=== PATIENT | male | born 1975 | race Caucasian/White ===

== ENCOUNTER 2023-08-19 01:02 | Observation (INO) | payer BC, SELFPAY ==
--- NOTE | ~2023-08-19 | XR_ITS ---
EXAMINATION: XR ankle LT min 3V DATE: 08/19/2023 01:57 INDICATION: Right ankle pain and cellulitis TECHNIQUE: Anteroposterior, mortise, and lateral views of the left ankle were obtained. COMPARISON: None. FINDINGS: Bone alignment is normal. No fracture. Joint spaces are normal. Small Achilles and plantar calcaneal spurs. No cortical erosions or periosteal reaction. There is diffuse soft tissue swelling about the l eft ankle which does not appear to extend more distally into the foot. Possible ankle joint effusion. IMPRESSION: 1. Diffuse soft tissue swelling about the left ankle with possible left ankle joint effusion. No acut e osseous abnormality. Reviewed, dictated and finalized at location A. IMPRESSION: 1. Diffuse soft tissue swelling about the left ankle with possible left ankle j oint effusion. No acute osseous abnormality.
[2023-08-19 01:06] VITALS: BP 148/85; PULSE 81; RESP 17; TEMP 36.4; O2SAT 100
[2023-08-19 01:54] LABS: Basophils Percent Auto 0.4 % (0.2-1.2); Eosinophils Percent Auto 0.1 % (0-4.4); Hematocrit 37.7 % (42.0-52.0); Hemoglobin 12.4 g/dL (14.0-18.0); Immature Granulocyte Absolute 0.02 K/mm3 (0.00-0.031); Immature Granulocyte Percent A 0.2 % (0-0.5); Lymphocytes Absolute Auto 0.75 K/mm3 (0.9-3.2); Lymphocytes Percent Auto 9.1 % (18.3-44.2); Mean Corpuscular HGB Conc 32.9 g/dl (32-36); Mean Corpuscular Hemoglobin 31.9 pg (26-34); Mean Corpuscular Volume 96.9 fl (80-100); Mean Platelet Volume 10.2 fl (7.4-10.4); Monocytes Absolute Auto 0.5 K/mm3 (0.1-0.6); Monocytes Percent Auto 6.2 % (2.6-8.5); Neutrophils Absolute Auto 6.9 K/mm3 (1.3-6.7); Platelet Count Result 322 k/mm3 (150-375); Red Blood Count 3.89 M/mm3 (4.6-6.20); White Blood Count 8.2 K/mm3 (4.5-10.0)
[2023-08-19 02:07] LABS: Lactic Acid Reflex 1.3 mmol/L (0.7-2.0)
[2023-08-19 02:09] LABS: Alanine Aminotransferase 30 U/L (6-50); Albumin Level 4.6 g/dL (3.5-5.1); Alkaline Phosphatase 98 U/L (38-126); Anion Gap 8 mmol/L (4-12); Aspartate Amino Transferase 27 U/L (17-59); Bilirubin,Total 0.4 mg/dL (0.2-1.3); Blood Urea Nitrogen 16 mg/dL (9-20); CRP 1.1 mg/dL (<1.0); Calcium 8.4 mg/dL (8.4-10.2); Carbon Dioxide 35 mmol/L (22-30); Chloride 98 mmol/L (98-107); Estimated CRCL calculation 120 ml/min; Estimated Glomerular Filt Rate > 60; Glucose 141 mg/dL (65-110); Potassium 3.8 mmol/L (3.4-5.0); Sodium 141 mmol/L (137-145)
--- NOTE | 2023-08-19 02:09 | ED.GENADULT ---
HPI - General Adult General Chief complaint: Extremity Problem,Nontraumatic Stated complaint: Left leg/ankle swelling Time Seen by Provider: 08/19/23 01:28 History of Present Illness HPI narrative: Patient 48-year-old gentleman presents emergency department with chief complaint of redness to the left foot area. The patient reports he was seen at another hospital told that he had infection in the skin was given a shot of antibiotics and then later on was started on Zithromax the patient reports that he has continued to have worsening redness and pain in the ankle and foot area the patient reports that he has no prior history of diabetes denies fever reports that he is concerned that infection is progressing. Related Data Allergies Allergy/AdvReac Type Severity Reaction Status Date / Time No Known Allergies Allergy Verified 08/19/23 01:09 Review of Systems Review of Systems: A 10 system review of systems was completed on the patient and is negative except for what is stated in the HPI. Nursing and ancillary documentation was reviewed. Exam Narrative: GENERAL: Well-appearing, well-nourished, and in no acute distress. HEAD: Normocephalic, atraumatic. EYES: PERRLA and EOMI. ENT: Nares clear, no rhinorrhea or epistaxis. Mucous membranes moist. NECK: Supple. CHEST: Clear to auscultation. No respiratory distress. HEART: Regular rate and rhythm. No murmur heard. Normal peripheral pulses. ABDOMEN: Soft, nontender, nondistended, normal active bowel sounds. EXTREMITIES: Normal range of motion. Slight swelling of the left ankle . SKIN: Warm, dry, no rash. Except for left ankle there is redness around the heel NEURO: No focal deficits. Alert and oriented x3. PSYCH: Normal mood and affect. Course Vital Signs Vital signs: Vital Signs Temperature 36.4 C 08/19/23 01:06 Pulse Rate 81 08/19/23 01:06 Respiratory Rate 17 08/19/23 01:06 Blood Pressure 148/85 H 08/19/23 01:06 Pulse Oximetry 100 08/19/23 01:06 Oxygen Delivery Room Air 08/19/23 01:06 Temperature 36.4 C 08/19/23 01:06 Pulse Rate 81 08/19/23 01:06 Respiratory Rate 17 08/19/23 01:06 Blood Pressure 148/85 H 08/19/23 01:06 Pulse Oximetry 100 08/19/23 01:06 Oxygen Delivery Room Air 08/19/23 01:06 Medical Decision Making MDM Narrative Medical decision making narrative: Differential diagnosis includes cellulitis, monoarticular arthritis, abscess, Laboratory studies were obtained on the patient showed a CBC with white count 8.2 lactic acid was normal CRP pro count and sed rate were normal. X-ray showed no evidence of foreign body no evidence of soft tissue gas or evidence of bony destruction The patient started on Ancef and vanc due to the failed outpatient therapy the patient will be admitted for observation for IV antibiotics blood cultures were obtained Vital Signs Vital Signs: Vital Signs Temperature 36.4 C 08/19/23 01:06 Pulse Rate 81 08/19/23 01:06 Respiratory Rate 17 08/19/23 01:06 Blood Pressure 148/85 H 08/19/23 01:06 Pulse Oximetry 100 08/19/23 01:06 Oxygen Delivery Room Air 08/19/23 01:06 Temperature 36.4 C 08/19/23 01:06 Pulse Rate 81 08/19/23 01:06 Respiratory Rate 17 08/19/23 01:06 Blood Pressure 148/85 H 08/19/23 01:06 Pulse Oximetry 100 08/19/23 01:06 Oxygen Delivery Room Air 08/19/23 01:06 Lab Data 08/19/23 01:45 08/19/23 01:44 Labs: Lab Results 08/19/23 08/19/23 Range/Units 01:44 01:45 WBC 8.2 (4.5-10.0) K/mm3 RBC 3.89 L (4.6-6.20) M/mm3 Hgb 12.4 L (14.0-18.0) g/dL Hct 37.7 L (42.0-52.0) % MCV 96.9 (80-100) fl MCH 31.9 (26-34) pg MCHC 32.9 (32-36) g/dl RDW 12.0 (11.5-14.5) % Plt Count 322 (150-375) k/mm3 MPV 10.2 (7.4-10.4) fl Immature Gran % (Auto) 0.2 (0-0.5) % Neut % (Auto) 84.0 H (45.5-73.1) % Lymph % (Auto) 9.1 L (18.3-44.2) % [place] % (Auto) 6.
[2023-08-19 02:19] LABS: Erythrocyte Sedimentation Rate 20 mm/hr (0-20)
[2023-08-19] MEDS: ceFAZolin 1 GM/NS 50 ML 1 GM/50 ML BAG IVPB ×3 (02:29→17:09)
[2023-08-19 02:37] VITALS: BP 139/92; PULSE 70; RESP 12; O2SAT 95
--- NOTE | 2023-08-19 02:56 | PM.IMHP ---
H&P: HPI History of Present Illness Date/Time: 08/19/23 02:56 Chief Complaint: cellulitis Narrative: This is a 48-year-old male with no significant past medical history presents to the emergency room with 10 days history of left lower extremity ankle area cellulitis redness warmth tenderness patient had been seen in the Urgent Care was given Solu pack and erythromycin however patient noticed no improvement decided to come to the emergency room. Patient denies fevers rigors chills nausea vomiting abdominal pain diarrhea muscles aches and pains, generalized malaise. ankle x-ray showed no fracture or foreign body Review of Systems Review of Systems: tenderness, redness of the leg. Meds Home Medications and Allergies Allergies Allergy/AdvReac Type Severity Reaction Status Date / Time No Known Allergies Allergy Verified 08/19/23 01:09 Vital Signs Vital Signs - 24 hr 08/19/23 01:06 08/19/23 02:37 Temperature 97.6 F Pulse Rate 81 70 Respiratory Rate 17 12 Blood Pressure 148/85 H 139/92 H Pulse Oximetry 100 95 Oxygen Delivery Room Air Exam Narrative: patient is laying in bed Const: General: comfortable, no acute distress, well developed, alert, awake and average body habitus Nutritional Appearance: average body habitus Orientation/consciousness: patient oriented x3 Other: well-appearing HENMT: Head: normal to inspection, normocephalic and atraumatic Ears: hearing grossly normal bilaterally Face/Nose/Sinus: normal facial exam Face and sinus: normal facial exam Eyes: General: appearance normal, both eyes and all related structures Pupils: Equal, round and reactive pupils present EOM: EOMs intact bilaterally Neck: Neck: full ROM, no lymphadenopathy and no JVD Thyroid: thyroid normal Lymphatic: no lymphadenopathy noted Resp: Effort & Inspection: normal respiratory effort and able to speak in complete sentences Auscultation: clear to auscultation bilaterally Cardio: Jugular venous distension: no JVD Rate: regular rate Rhythm: regular rhythm Heart sounds: S1 normal heart sound present and S2 normal heart sound present GI: GI Palp: Yes Soft to palpation and Yes No hepatosplenomegaly present : General: Yes deferred Skin: Rashes: no rashes Wounds: no wounds Neuro: General: patient oriented x3 and CN's II-XI intact bilaterally Cranial nerves: Yes CN's II-XII intact bilaterally and Yes Equal, round and reactive pupils present Cognition (Neuro): normal cognition Speech: normal speech Gait exam (Neuro): Normal gait present Motor exam (neuro): 5/5 motor strength present throughout Extrem: General: normal to inspection, full ROM, no joint enlargement and no pedal edema Left lower extremity: ankle Details: tenderness, swelling and warmth H&P: Results Labs Labs: Short CBC 08/19/23 Range/Units 01:45 WBC 8.2 (4.5-10.0) K/mm3 Hgb 12.4 L (14.0-18.0) g/dL Hct 37.7 L (42.0-52.0) % Plt Count 322 (150-375) k/mm3 BMP 08/19/23 01:44 Sodium 141 Potassium 3.8 Chloride 98 Carbon Dioxide 35 H BUN 16 Creatinine 0.70 Glucose 141 H Calcium 8.4 Liver Function 08/19/23 Range/Units 01:44 Total Bilirubin 0.4 (0.2-1.3) mg/dL AST 27 (17-59) U/L ALT 30 (6-50) U/L Alkaline Phosphatase 98 (38-126) U/L Albumin 4.6 (3.5-5.1) g/dL Assessment and Plan Assessment and plan (1) Cellulitis: Code(s): L03.90 - Cellulitis, unspecified Status: Acute Assessment and Plan: place in medical regular floor started on cefepime and vancomycin cultures in progress supportive care
[2023-08-19] MEDS: VANCOMYCIN 1,500 MG/NS 500 ML 1,500 MG/500 ML BAG 250 MG IVPB (03:10)
--- NOTE | 2023-08-19 03:21 | ADMGEN ---
This patient, David Crawford, was admitted to Medical Room 249-01. Patient/family oriented to hospital policies and general routines including ID bracelet, bed and alarms, visiting hours, pain management, procedures, bathroom and other care routines, personal items, smoking policy, room service/diet, and visiting hours. Information on how to activate the Rapid Response Team has been discussed. Patient/Family are encouraged to report perceived risks to care and to ask questions if they do not understand what they are told or what they should do.
[2023-08-19 03:29] VITALS: BMI 24.0
[2023-08-19 03:32] VITALS: BP 142/80; PULSE 66; RESP 16; TEMP 36.6; O2SAT 100
[2023-08-19 14:00] VITALS: BP 127/82; PULSE 62; RESP 14; TEMP 36.8; O2SAT 97
[2023-08-19] MEDS: VANCOMYCIN 1,500 MG/NS 500 ML 1,500 MG/500 ML BAG 150 MG IVPB (14:53)
[2023-08-19] MEDS: traMADol HCL (*CRX) 50 MG TABLET PO ×2 (14:58→20:47)
--- NOTE | 2023-08-19 16:07 | PM.IMPN ---
Progress Note: A&P Assessment and Plan (1) Cellulitis: Code(s): L03.90 - Cellulitis, unspecified Status: Acute Assessment and Plan: -acute, patient reports a history of long extended periods of outside work, he admits to several tick bites in the last 2 weeks -pt reports hx of chronic scratches to his legs from his cats He denies any fever chills nausea vomiting -check Lyme titer -continue vancomycin IVBP q 24hrs -continue ancef 1 gm q 8hrs blood cultures pending - Plan Continue home medications: denies daily medications VTE Prophylaxis: SCDs DIET: Regular Anticipated hospital stay: > 2 days Code Status: Full code Time Spent With Patient Time with patient: 15 - 25 minutes Subjective Date/time seen: 08/19/23 16:07 Interval history: 48 year-old male patient with limited PMHx: Denies any daily medication use presented to the emergency room with complaint of ongoing left ankle swelling. 08/19/2023: Patient seen this morning, he is resting in bed denies any overnight complaints, he reports initial swelling to ankle has decreased. Review of Systems Review of Systems: All systems reviewed & are unremarkable except as noted in HPI and below Exam Narrative: General: A well-developed, nontoxic-appearing gentlemen, sitting up in bed. HEENT: PERRL, EOMI. Oral mucosa moist. Neck: Supple. No midline cervical tenderness. Respiratory: Respirations are non- labored and lungs are clear to auscultation bilaterally. Cardiovascular: Regular rate and rhythm with S1-S2. Gastrointestinal: Abdomen is soft, non-tender, and non-distended with positive bowel sounds. Skin: Warm and dry. Left ankle swelling and redness, not tender to touch Extremities: No cyanosis, clubbing, or edema. Radial and pedal pulses intact. Neurological: Alert and oriented. Cranial nerves 2-12 are grossly intact. No gross focal deficits to casual conversation. Psychiatric: Pleasant and cooperative with normal mood and affect. Judgment and insight intact. Objective Data Vital Signs Vital Signs: Vital Signs - 24 hr 08/19/23 01:06 08/19/23 02:37 08/19/23 03:32 Temperature 97.6 F 97.8 F Pulse Rate 81 70 66 Respiratory Rate 17 12 16 Blood Pressure 148/85 H 139/92 H 142/80 H Pulse Oximetry 100 95 100 Oxygen Delivery Room Air 08/19/23 08:00 08/19/23 14:00 Temperature 98.3 F Pulse Rate 62 Respiratory Rate 14 Blood Pressure 127/82 Pulse Oximetry 97 Oxygen Delivery Room Air Intake/Output Intake/Output: Intake & Output 08/16/23 08/17/23 08/18/23 08/19/23 23:59 23:59 23:59 23:59 Intake Total 790 Balance 790 Meds/Results Medications: Active Medications Generic Name Dose Route Start Last Admin Trade Name Freq PRN Reason Stop Dose Admin Acetaminophen 1,000 mg 08/19/23 03:40 Acetaminophen 500 Mg Tablet PO Q6H PRN Mild Pain (1-3) or Fever Al Hydrox/Mg Hydrox/Simethicone 30 ml 08/19/23 03:40 Mag Hydrox/Al Hydrox/Simeth 30 Ml Udc PO Q6H PRN Indigestion Cefazolin Sodium 1 gm in 50 mls @ 100 mls/hr 08/19/23 10:00 08/19/23 09:00 Ancef 1 Gm/Ns 50 Ml IVPB 100 mls/hr Q8H [place] Administration Vancomycin HCl 1,500 mg in 500 mls @ 250 mls/hr 08/19/23 03:00 08/19/23 14:53 Vancomycin 1,500 Mg/Ns 500 Ml IVPB 150 mls/hr Q12H [place] Administration Ondansetron HCl 4 mg 08/19/23 03:40 Ondansetron Inj 4 Mg/2 Ml Vial IV PUSH Q6H PRN Nausea And Vomiting Polyethylene Glycol 17 gm 08/19/23 03:40 Polyethylene Glycol 3350 17 Gm Powd.Pack PO QAM PRN Constipation Tramadol HCl 50 mg 08/19/23 03:40 08/19/23 14:58 Tramadol Hcl (*Crx) 50 Mg Tablet PO 50 mg Q6H PRN Administration Pain Rated 4-6 Radiology Results: ITS Impressions Ankle X-Ray 08/19/23 07:42 IMPRESSION: 1. Diffuse soft tissue swelling about the left ankle with possible left ankle joint effusion. No acute osseous abnormality. Labs L
[2023-08-19 20:00] VITALS: PULSE 60; RESP 18; O2SAT 97
[2023-08-19 20:07] VITALS: BP 133/77; PULSE 50; RESP 17; TEMP 36.6; O2SAT 97
[2023-08-20] MEDS: VANCOMYCIN 1,500 MG/NS 500 ML 1,500 MG/500 ML BAG 150 MG IVPB (03:41)
[2023-08-20] MEDS: ceFAZolin 1 GM/NS 50 ML 1 GM/50 ML BAG IVPB ×2 (03:41→09:23)
[2023-08-20 05:14] VITALS: BP 127/78; PULSE 53; RESP 17; TEMP 37; O2SAT 97
[2023-08-20 06:52] LABS: Estimated CRCL calculation 121 ml/min; Estimated Glomerular Filt Rate > 60
--- NOTE | 2023-08-20 08:34 | PM.IMPN ---
Progress Note: A&P Assessment and Plan (1) Cellulitis: Code(s): L03.90 - Cellulitis, unspecified Status: Acute Assessment and Plan: 08/20/23: Patient presented with a red/warm/swollen left ankle. He was seen and treated at an outside hospital with azithromycin which is now showing failure. Continue Ancef and vancomycin X-ray of the left ankle shown diffuse soft tissue swelling about the left ankle with possible left ankle joint effusion White blood cell count 8.2, lactic acid was 1.3, C reactive protein was 1.1, procalcitonin 0.0. Blood cultures were obtained and are pending. 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 We will check patient for Lyme disease Time Spent With Patient Time with patient: Greater than 35 minutes Subjective Date/time seen: 08/20/23 08:34 Interval history: This is a 48-year-old male who presented to the hospital on 08/19/2023 with left leg/ankle swelling. Workup in the hospital included an ankle x-ray which showed diffuse soft tissue swelling about the left ankle with possible left ankle joint effusion. Patient was seen at an outside hospital and was told that he had an infection in the skin and was given shot antibiotics and started on azithromycin however his pain and redness and swelling worsened prompting him to come back to the emergency room for further workup. Initial labs shown a normal white blood cell count of 8.2, hemoglobin 12.4, C reactive protein 1.1, pro count 0.0, lactic acid 1.3. Blood cultures were obtained and are pending. Patient was started on Ancef and vancomycin while in the ED. patient denies. Patient endorses. Review of Systems Review of Systems: All systems reviewed & are unremarkable except as noted in HPI and below Constitutional: Constitutional: Reports as per HPI and Reports no additional constitutional complaints Eyes: Eyes: Reports as per HPI and Reports no additional eye complaints ENT: Reports system reviewed and no additional complaints, except as documented and Reports as per HPI Cardiovascular: Cardiovascular: Reports as per HPI and Reports no additional cardiovascular complaints Respiratory: Respiratory: Reports as per HPI and Reports no additional respiratory complaints Gastrointestinal: Gastrointestinal: Reports as per HPI and Reports no additional gastrointestinal complaints Genitourinary: Genitourinary: Reports no additional male genitourinary complaints and Reports as per HPI Musculoskeletal: Musculoskeletal: Reports no additional musculoskeletal complaints and Reports as per HPI Integumentary/Breasts: Skin/Breast: Reports system reviewed and no additional complaints, except as docu and Reports as per HPI Neurologic: Reports system reviewed and no additional complaints, except as documented and Reports as per HPI Psychiatric: Psychiatric: Reports no additional psychiatric complaints and Reports as per HPI Exam Narrative: General: In no acute distress, well nourished Head: atraumatic, no encephalopathy Eyes: EOMI, PERRLA, sclera clear ENT: moist mucous membranes, nasal passages clear Neck: supple, no JVD, no adenopathy, trachea midline Cardiac: Normal S1 and S2. No murmur, gallops or friction rubs, peripheral pulses intact. Respiratory: Lungs clear to auscultation, no adventitious lung sounds Gastrointestinal: soft, non-distended, non-tender, normoactive bowel sounds. : voiding without difficulty. Extremities: moves all extremities well, no edema, good ROM, strength 5/5 Skin: clean, dry, intact. No wounds or lesions. Neuro: Alert and oriented x4, cranial nerves intact, no neuro deficits. Psych: normal mood, normal affect, interactive Objective Data Vital Signs Vital Signs: Vital Signs - 24 hr 08/19/23 14:00 08/19/23 20:07 08/19/23 20:00 Temperature 98.3 F 97.9 F Pulse Rate 62 50 L 60 Respiratory Rate 14 17 18 Blood Pressure 127/82 133/77 Pulse Oximetry
[2023-08-20 08:53] LABS: Basophils Absolute Auto 0.1 K/mm3 (0.0-0.1); Basophils Percent Auto 0.6 % (0.2-1.2); Eosinophils Absolute Auto 0.2 K/mm3 (0-0.3); Eosinophils Percent Auto 2.3 % (0-4.4); Hematocrit 43.2 % (42.0-52.0); Hemoglobin 13.7 g/dL (14.0-18.0); Immature Granulocyte Absolute 0.02 K/mm3 (0.00-0.031); Immature Granulocyte Percent A 0.2 % (0-0.5); Lymphocytes Absolute Auto 1.68 K/mm3 (0.9-3.2); Lymphocytes Percent Auto 19.4 % (18.3-44.2); Mean Corpuscular HGB Conc 31.7 g/dl (32-36); Mean Corpuscular Hemoglobin 30.9 pg (26-34); Mean Corpuscular Volume 97.3 fl (80-100); Mean Platelet Volume 10.6 fl (7.4-10.4); Monocytes Absolute Auto 0.7 K/mm3 (0.1-0.6); Monocytes Percent Auto 7.9 % (2.6-8.5); Neutrophils Percent Auto 69.6 % (45.5-73.1); Platelet Count Result 330 k/mm3 (150-375); Red Blood Count 4.44 M/mm3 (4.6-6.20); White Blood Count 8.6 K/mm3 (4.5-10.0)
[2023-08-20] MEDS: ENOXAPARIN 40 MG/0.4 ML SYRINGE SUB-Q (09:23)
[2023-08-20 09:29] LABS: Vancomycin Trough 44.5 ug/mL (10.0-20.0)
[2023-08-20 11:12] LABS: Alanine Aminotransferase 29 U/L (6-50); Albumin Level 3.8 g/dL (3.5-5.1); Alkaline Phosphatase 92 U/L (38-126); Anion Gap 7 mmol/L (4-12); Aspartate Amino Transferase 25 U/L (17-59); Bilirubin,Total 0.4 mg/dL (0.2-1.3); Blood Urea Nitrogen 11 mg/dL (9-20); Calcium 8.6 mg/dL (8.4-10.2); Carbon Dioxide 27 mmol/L (22-30); Chloride 107 mmol/L (98-107); Estimated CRCL calculation 121 ml/min; Estimated Glomerular Filt Rate > 60; Glucose 93 mg/dL (65-110); Potassium 3.8 mmol/L (3.4-5.0); Sodium 141 mmol/L (137-145)
[2023-08-20 11:19] VITALS: O2SAT 96
--- NOTE | 2023-08-20 12:55 | PM.DS ---
DS: Admitting Diagnosis Discharge Date 08/20/23 Admitting Diagnosis Cellulitis DS: Summary Hospital Course Reason for hospitalization: Cellulitis Hospital Course: This is a 48-year-old male who presented to the hospital on 08/19/2023 with left leg/ankle swelling. Workup in the hospital included an ankle x-ray which showed diffuse soft tissue swelling about the left ankle with possible left ankle joint effusion. Patient was seen at an outside hospital and was told that he had an infection in the skin and was given shot antibiotics and started on azithromycin however his pain and redness and swelling worsened prompting him to come back to the emergency room for further workup. Initial labs shown a normal white blood cell count of 8.2, hemoglobin 12.4, C reactive protein 1.1, pro count 0.0, lactic acid 1.3. Blood cultures were obtained and are pending. Patient was started on Ancef and vancomycin while in the ED. Patient denies any fever, chills, nausea, vomiting, diarrhea, abdominal pain chest pain shortness breath. Patient states that he is not having any pain in his lower extremity and the swelling has improved. Plan is to go ahead and discharge home on oral antibiotics. He will need to follow up with PCP in 1 week. Final diagnosis: Cellulitis Status at Discharge Cognitive/behavioral status at discharge: Alert oriented x4 Functional status at discharge: independent ambulation Overall status at discharge: patient is progressing back to baseline Time Spent with Patient Time attestation: Total time spent providing and/or coordinating discharge services: Time spent: Greater than 30 minutes Exam Narrative: General: In no acute distress, well nourished Head: atraumatic, no encephalopathy Eyes: EOMI, PERRLA, sclera clear ENT: moist mucous membranes, nasal passages clear Neck: supple, no JVD, no adenopathy, trachea midline Cardiac: Normal S1 and S2. No murmur, gallops or friction rubs, peripheral pulses intact. Respiratory: Lungs clear to auscultation, no adventitious lung sounds Gastrointestinal: soft, non-distended, non-tender, normoactive bowel sounds. : voiding without difficulty. Extremities: moves all extremities well, mild left ankle swelling, good ROM, strength 5/5 Skin: Skin is pink around Achilles, mild swelling today. Neuro: Alert and oriented x4, cranial nerves intact, no neuro deficits. Psych: normal mood, normal affect, interactive DS: Data Data Completed and Pending Completed studies during hospitalization: Ankle x-ray Pending studies at discharge: Blood cultures Labs on day of discharge: Labs from last 24 hours 08/20/23 08/20/23 08/20/23 05:57 05:57 05:57 WBC RBC Hgb Hct MCV MCH MCHC RDW Plt Count MPV Immature Gran % (Auto) Neut % (Auto) Lymph % (Auto) [place] % (Auto) Eos % (Auto) Baso % (Auto) Lymph # (Auto) [place] # (Auto) Eos # (Auto) Baso # (Auto) Abs Immat Gran (auto) Absolute Neuts (auto) Absolute Nucleated RBC Nucleated RBC % Sodium Potassium Chloride Carbon Dioxide Anion Gap BUN Creatinine 0.70 Estim Creat Clear Calc 121 121 Estimated GFR > 60 > 60 Glucose 93 Calcium 8.6 Total Bilirubin 0.4 AST 25 ALT 29 Alkaline Phosphatase 92 Total Protein 7.0 Albumin 3.8 Vancomycin Trough 44.5 H* Lyme IgG 18 kDa Band Pending Lyme IgG 23 kDa Band Pending Lyme IgG 28 kDa Band Pending Lyme IgG 30 kDa Band Pending Lyme IgG 39 kDa Band Pending Lyme IgG 41 kDa Band Pending Lyme IgG 45 kDa Band Pending Lyme IgG 58 kDa Band Pending Lyme IgG 66 kDa Band Pending Lyme IgG 93 kDa Band Pending Lyme IgG Ab (Immblot) Pending Lyme IgM Ab (Immblot) Pending Lyme IgM 23 kDa Band Pending Lyme IgM 39 kDa Band Pending Lyme IgM 41 kDa Band Pending 08/20/23 05:57 WBC 8.6 RBC 4.44 L Hgb 13.7 L Hct 43.2 MCV 97.3 MCH 30
[2023-08-22 15:30] LABS: Lyme Disease Ab (IgM), Blot NEGATIVE (NEGATIVE); Lyme Disease Ab(IgG), Blot NEGATIVE (NEGATIVE)
== END 2023-08-20 13:10 | disposition home or self-care (01) ==
LOC: ANHED 02:34 → ANH2MED 03:06
PROVIDERS: Admitting Provider Internal Medicine; Emergency Provider Emergency Medicine; PCP Emergency Medicine; Visit Provider Nurse Practitioner Acute Care
DX: L03.116 Cellulitis of left lower limb (principal)
CPT/HCPCS: 36415; 73610; 80053; 80202; 82565; 83605; 84145; 85025; 85652; 86140; 86617; 87040; 96365; 96366; 96367; 96372; 99285; A9270; G0378; J0690; J1650; J3370